=== PATIENT | female | born 2005 | race Caucasian/White ===

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

== ENCOUNTER 2023-01-08 07:01 | Outpatient (CLI) | payer OTHER, SELFPAY ==
[2023-01-08 07:12] LABS: Add Urine Microscopic? YES; Appearance Urine Clear (Clear); Bilirubin Urine Negative (Negative); Blood Urine Negative (Negative); Color Urine Light Yellow (Yellow); Glucose Urine UA Negative (Negative); Ketones Urine Negative (Negative); Leukocyte Esterase Ur 2+ LEU/UL (Negative); Nitrate Urine Negative (Negative); Protein Urine Negative (Negative); Specific Grav Ur 1.015 (1.010-1.020); Urobilinogen Urine 0.2 mg/dL (0.2-1.0); pH Urine 6.5 (5.0-8.0)
[2023-01-08 07:20] LABS: RBC Urine None seen /hpf (0-2); Squamous Epithelial Cell Urine Few /hpf (Few)
[2023-01-08 07:21] LABS: Bacteria Urine Trace /hpf
== END 2023-01-08 07:02 | disposition home or self-care (01) ==
LOC: CHSLAB 07:03
PROVIDERS: PCP Nurse Practitioner Family; Visit Provider Nurse Practitioner Family
DX: R10.2 Pelvic and perineal pain (principal); R82.90 Unspecified abnormal findings in urine
CPT/HCPCS: 81001; 87086; 87088

== ENCOUNTER 2023-06-04 19:50 | Emergency (ER) | payer OTHER, SELFPAY ==
--- NOTE | 2023-06-04 19:52 | ED.ANIMALBIT ---
HPI - Animal Bite General Chief Complaint: Animal Bite Stated Complaint: Ambulance Time Seen by Provider: 06/04/23 19:52 Source: patient, EMS and RN notes reviewed Mode of arrival: EMS Limitations: no limitations History of Present Illness complaint: animal bite Onset (ago): minute(s) (15) Animal: dog Description of animal: household pet Mechanism: bite Location - Extremities: Bilateral: hand Pain description: dull and constant Context: animals fighting Associated symptoms: none Treatments prior to arrival: wound dressing(s) Related Data Patient tetanus UTD: No ( 8 years since the last 1) Allergies Allergy/AdvReac Type Severity Reaction Status Date / Time No Known Allergies Allergy Verified 06/04/23 20:19 Review of Systems Review of Systems: All systems reviewed & are unremarkable except as noted in HPI and below PMFSH Past Medical History Medical History Diarrhea Earache on left IBS (irritable bowel syndrome) Nausea & vomiting Surgical History Surgical History History of appendectomy History of cranial surgery History of tonsillectomy Social History Social History Smoking status: Never smoker Alcohol intake: never Substance use: never Living arrangements: with family Spiritual care concerns: No Exam Const: General: healthy appearing and no acute distress Nutritional Appearance: well nourished Orientation/consciousness: patient oriented x3 Limitations: no limitations Other: female nurse in room during examination. HENMT: Head: normal to inspection Ears: external ears normal Face/Nose/Sinus: Normal external nose present Face and sinus: normal facial exam Mouth: Yes moist mucous membranes Eyes: Conjunctivae: conjunctivae normal Pupils: Equal, round and reactive pupils present EOM: EOMs intact bilaterally Neck: Neck: normal visual inspection Resp: Effort & Inspection: normal respiratory effort Auscultation: clear to auscultation bilaterally Cardio: Rate: regular rate Rhythm: regular rhythm GI: GI Palp: Yes Soft to palpation and No Tenderness to palpation present (GI) Auscultation: normal bowel sounds Back/Spine/Pelvis: Cervical Spine: cervical ROM normal Thoracic/Lumbar Spine: thoraco-lumbar ROM normal Skin: General skin exam: normal color Rashes: no rashes Wounds: wounds noted puncture wound left palmar palm , puncture wound left palmar 3rd finger , puncture wound right dorsal 2nd finger Course Course Emergency Course: All wounds are cleansed and bandaged. Vital Signs Vital signs: Vital Signs Temperature 37.1 C 06/04/23 20:00 Pulse Rate 103 H 06/04/23 20:00 Respiratory Rate 20 06/04/23 20:00 Blood Pressure 145/89 H 06/04/23 20:00 Pulse Oximetry 98 06/04/23 20:00 Temperature 36.1 C L 06/04/23 21:10 Pulse Rate 99 06/04/23 21:10 Respiratory Rate 18 06/04/23 21:10 Blood Pressure 144/88 H 06/04/23 21:10 Pulse Oximetry 98 06/04/23 21:10 Oxygen Delivery Room Air 06/04/23 21:10 MDM - Animal Bite Differential Diagnosis Differential diagnosis: Likely dog bite Discharge Plan Discharge Clinical Impression: Dog bite Qualifiers: Encounter type: initial encounter Qualified Code(s): W54.0XXA - Bitten by dog, initial encounter Patient Disposition: Home, Self-Care Condition: Stable Instructions: Antibiotic Form, Animal Bite (ED) Prescriptions: New amoxicillin-pot clavulanate 875-125 mg tablet 1 tablet PO Q12H 7 Days Qty: 14 0RF No Action medroxyprogesterone [Depo-Provera] 150 mg/mL suspension 150 mg IM [id number] Qty: 1 3RF Follow-up/Referrals: Jareth Oleary APRN [Primary Care Provider] - Time of Disposition: 21:03
[2023-06-04 20:00] VITALS: BP 145/89; PULSE 103; RESP 20; TEMP 37.1; O2SAT 98
--- NOTE | 2023-06-04 20:38 | PC.NURSE ---
Pt wounds cleaned with soap, water, and wound cleanse. Antibiotic ointment and bandaids applied to left middle and right index finger. Gauze and kerlex applied to left hand.
[2023-06-04] MEDS: TETANUS,DIPHTHERIA,AC PERTUSSIS ADULT 0.5 ML (ADACEL) IM (20:46)
[2023-06-04] MEDS: AMOXICILLIN/CLAVULANATE K 875-125 MG TAB 1 TABLET PO (20:46)
[2023-06-04 21:10] VITALS: BP 144/88; PULSE 99; RESP 18; TEMP 36.1; O2SAT 98
== END 2023-06-04 21:19 | disposition home or self-care (01) ==
PROVIDERS: Emergency Provider Emergency Medicine; PCP Nurse Practitioner Family
DX: S61.452A Open bite of left hand, initial encounter (principal); S61.250A Open bite of right index finger without damage to nail, initial encounter; S61.253A Open bite of left middle finger without damage to nail, initial encounter; Z23 Encounter for immunization; W54.0XXA Bitten by dog, initial encounter
CPT/HCPCS: 90471; 90715; 99283; A9270